=== PATIENT | female | born 1955 | race Caucasian/White ===

== ENCOUNTER 2017-10-27 10:42 | Emergency (ER) | payer SELFPAY ==
[~2017-10-27] VITALS: Ht 162.6 cm; Wt 106.1 kg
[~2017-10-27 10:42] MED LIST: FLOVENT 22120 INHALA IH; NEXIUM40 MG PO; PRILOSEC20 MG PO; VENTOLIN HFA18 GM IH; ZITHROMAX250 MG PO
[2017-10-27 11:48] LABS: HEMATOCRIT 40.3 % (36.0-46.0); HEMOGLOBIN 13.4 G/DL (11.9-15.5); MCH 28.8 PG (29.0-34.0); MCHC 33.3 G/DL (30.0-36.0); MCV 86.5 FL (83-99); PLATELET COUNT 214 K/uL (156-360); RBC DIS.WIDTH-CV 13.3 % (11.8-14.6); RBC DIS.WIDTH-SD 42.1 % (39-53); RED BLOOD COUNT 4.66 M/uL (3.80-5.20); WHITE BLOOD COUNT 6.1 K/uL (4.1-10.2)
[2017-10-27 12:04] LABS: CHLORIDE 106 MEQ/L (99-109); POTASSIUM 3.5 MEQ/L (3.7-5.4); SODIUM 141 MEQ/L (136-147)
[2017-10-27 12:09] LABS: CREATININE 0.9 MG/DL (0.6-1.3); GFR ESTIMATE (CALCULATED) > 59 mL/min/; GLUCOSE 121 mg/dL (70-99); UREA NITROGEN (BUN) 12 mg/dL (9-23)
[2017-10-27] MEDS ORDERED: VENTOLIN HFA18 GM IH (14:01)
[2017-10-27 14:17] VITALS: BP 104/74
== END 2017-10-27 14:18 | disposition home or self-care (01) ==
LOC: EME 10:42
DX: J20.9 Acute bronchitis, unspecified (principal); J45.909 Unspecified asthma, uncomplicated; Z90.710 Acquired absence of both cervix and uterus
CPT/HCPCS: 71046; 80048; 85027; 94640; 99281; 99284